=== PATIENT | male | born 1990 | race Two or more races ===

== ENCOUNTER 2020-05-25 08:04 | Emergency (ER) | payer SELFPAY ==
[~2020-05-25] VITALS: Ht 177.8 cm; Wt 100.0 kg
--- NOTE | 2020-05-25 10:40 | RAD ---
EXAM: AP, lateral and lumbosacral spot views of the lumbar spine DATE: 05/25/2020 9:24 AM INDICATION: Reason: LOWER BACK PAIN / Spl. Instructions: / History: COMPARISON: No Prior FINDINGS: Vertebral body heights are preserved. Disc heights are preserved. No spondylolisthesis. No acute fracture. Moderate colonic stool content. IMPRESSION: 1. Negative acute fracture or subluxation. Electronically signed by: Brokos Stone MD (05/25/2020 10:37 AM) [id number]
[2020-05-25] MEDS ORDERED: KETOROLAC 60 MG/2 ML VIAL. IM ONE (11:00)
[2020-05-25] MEDS ORDERED: methylPREDNISolone SOD SUCC PF 125 MG/2 ML VIAL. IM ONE (11:00)
[2020-05-25] MEDS ORDERED: PRED20TA PO (11:18)
[2020-05-25] MEDS ORDERED: IBUP-1060 PO (11:18)
--- NOTE | 2020-05-25 11:20 | PHYS DOC ---
Past Medical History Past Medical History: No Pertinent History Past Surgical History: No Surgical History Smoking Status: Never Smoker Alcohol Use: None General Adult EDM: Chief Complaint: BACK PAIN OR INJURY HPI: HPI: Patient is a 30 year old male who presented to ER today for evaluation of low back pain on the right side. The pain has been going on for several months but become more severe this morning. Patient denies any numbness or weakness in his extremity, denies any bowel or bladder incontinence. 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 Patient denies any fever, no abdominal pain, no nausea vomiting. Patient complains of pain getting worse whenever he bent over or twisting his back around. Review of Systems: Review of Systems: Constitutional: Denies fever or chills. [] Eyes: Denies change in visual acuity. [] HENT: Denies nasal congestion or sore throat. [] Respiratory: Denies cough or shortness of breath. [] Cardiovascular: Denies chest pain or edema. [] GI: Denies abdominal pain, nausea, vomiting, bloody stools or diarrhea. [] : Denies dysuria. [] Musculoskeletal: Positive for low back pain. Integument: Denies rash. [] Neurologic: Denies headache, focal weakness or sensory changes. [] Endocrine: Denies polyuria or polydipsia. [] Lymphatic: Denies swollen glands. [] Psychiatric: Denies depression or anxiety. [] Heart Score: Risk Factors: Risk Factors: DM, Current or recent (<one month) smoker, HTN, HLP, family history of CAD, obesity. Risk Scores: Score 0 - 3: 2.5% MACE over next 6 weeks - Discharge Home Score 4 - 6: 20.3% MACE over next 6 weeks - Admit for Clinical Observation Score 7 - 10: 72.7% MACE over next 6 weeks - Early Invasive Strategies Current Medications: Current Medications Medications (Trade) Dose Ordered Sig/Alek Start Time Stop Time Status Last Admin Dose Admin Ketorolac Tromethamine (Toradol Im) 60 mg 1X ONCE 05/25/20 11:00 05/25/20 11:01 DC 05/25/20 11:10 60 MG Methylprednisolone Sodium Succinate (SOLU-Medrol 125MG VIAL) 125 mg 1X ONCE 05/25/20 11:00 05/25/20 11:01 DC 05/25/20 11:09 125 MG Allergies: Allergies: Allergies Coded Allergies Type Severity Reaction Last Updated Verified No Known Drug Allergies 05/25/20 No Physical Exam: PE: Constitutional: Well developed, well nourished, no acute distress, non-toxic appearance. [] HENT: Normocephalic, atraumatic, bilateral external ears normal, oropharynx moist, no oral exudates, nose normal. [] Eyes: PERRLA, EOMI, conjunctiva normal, no discharge. [] Neck: Normal range of motion, no tenderness, supple, no stridor. [] Cardiovascular:Heart rate regular rhythm, no murmur [] Lungs & Thorax: Bilateral breath sounds clear to auscultation [] Abdomen: Bowel sounds normal, soft, no tenderness, no masses, no pulsatile masses. [] Skin: Warm, dry, no erythema, no rash. [] Back: There is no midline lumbar vertebral tenderness to palpation, there is paraspinal muscle tenderness to palpation at L4 L5-S1 area on the right side. There is good bilateral patellar reflexes. Extremities: No tenderness, no cyanosis, no clubbing, ROM intact, no edema. [] Neurologic: Alert and oriented X 3, normal motor function, normal sensory function, no focal deficits noted. [] Psychologic: Affect normal, judgement normal, mood normal. [] Current Patient Data: Vital Signs: Vital Signs Date Time Temp Pulse Resp B/P (MAP) Pulse Ox O2 Delivery O2 Flow Rate FiO2 05/25/20 10:06 83 18 131/88 (102) 97 Room Air 05/25/20 08:15 99.6 99.6 EKG: EKG: [] Radiology/Procedures: Radiology/Procedures: [][facility] [address] [place] [address] IMAGING REPORT Signed PATIENT: ANGELA CUENCA LACCOUNT: [id number] : 1990 LOCATION: ER AGE: 30 SEX: M EXAM STATUS: REG ER ORD. PHYSICIAN: LORRI SHIRLEY DO REASON: LOWER BACK PAIN PROCEDURE: LUMBAR SPINE 2-3V EXAM: AP, lateral and lumbosacral spot views of the lumbar spine DATE: 05/25/2020 9:24 AM INDICATION: Reason: LOWER BACK PAIN / Spl. Instructions: / History: COMPARISON: No Prior FINDINGS: Vertebral body heights are preserved. Disc heights are preserved. No spondylolisthesis. No acute fracture. Moderate colonic stool content. IMPRESSION: 1. Negative acute fracture or subluxation. Electronically signed by: Brooks Stone MD (05/25/2020 10:37 AM) [id number] DICTATED and SIGNED BY: BROOKS STONE MD DATE: 05/25/20 1037 Course & Med Decision Making: Course & Med Decision Making Pertinent Labs and Imaging studies reviewed. (See chart for details) Patient is a 30-year-old male who presented to ER due to low back pain, x-ray his lumbar spine did not show any acute problem. Patient will be discharged home with anti-inflammatory medication and steroid. Patient was instructed follow-up with her family physician for outpatient evaluation with MRI of his lumbar spine. Patient was amenable to plan of care. Dragon Disclaimer: Dragon Disclaimer: This electronic medical record was generated, in whole or in part, using a voice recognition dictation system. Departure Departure Impression: Primary Impression: Lower back pain Disposition: 01 DC HOME SELF CARE/HOMELESS Condition: STABLE Referrals: NO PCP (PCP) please follow up with your doctor for outpatient evaluation with MRI of your lower back. Patient Instructions: Back Pain, Adult Additional Instructions: [facility] [address] [place] [address] [facility] [address] [place] [address] [facility] [address] [facility] [place] [address] [facility] [address] [place] [address] [facility] [address] [place] [address] [address] [address] [place] [address] [facility] [place] [address] [place] [address] [facility] [address] [place] [address] [facility] [address] [place] [address] [facility] [address] [place] [address] Scripts Ibuprofen (IBUPROFEN) 800 Mg Tablet 800 MG PO PRN Q8HRS PRN for PAIN, #30 TAB Prov: LORRI SHIRLEY DO 05/25/20 Prednisone (PREDNISONE) 20 Mg Tablet 1 TAB PO DAILY for 10 Days, #10 TAB Prov: LORRI SHIRLEY DO 05/25/20 LORRI SHIRLEY DO May 25, 2020 11:20
[2020-05-25 11:32] VITALS: BP 133/81
== END 2020-05-25 11:35 | disposition home or self-care (01) ==
LOC: ER 08:04
DX: M54.5 Low back pain (principal)
CPT/HCPCS: 72100; 96372; 99284; J1885; J2930